=== PATIENT | female | born 1975 | race American Indian/Alaskan Native ===

== ENCOUNTER 2017-10-23 15:57 | Emergency (ER) | payer OTHER ==
[2017-10-23 16:16] VITALS: BP 159/72
[2017-10-23] MEDS ORDERED: NACL 0.9% 1000 ML 1,000 ML IV ONE (17:24)
--- NOTE | 2017-10-23 17:27 | Emergency Department Report ---
Blank Doc - Documentation Documentation: Patient is a 42-year-old [place] female past medical history of hyperglycemia and diabetes who is presenting with elevated blood sugar from home. Patient states that her blood sugars been running in the 4 500 range. Patient's had no nausea vomiting but has felt some gassy pains in the right upper quadrant and back. Patient and states that before arrival she took a double dose of her metformin and glipizide. Patient's blood sugar was 82 here in emergent department. Patient removed the treatment room. Mom may concern is that the patient took a double dose of her glipizide. At like to watch the patient for the next 2 hours to rule out hypoglycemic episodes. Also patient because her sugars been running high for the past several days most likely has some dehydration. IV fluids will be given. Patient be reassessed.
--- NOTE | 2017-10-23 18:58 | Emergency Department Report ---
- General Chief complaint: Hyperglycemia Stated complaint: HIGH BLOOD SUGAR/CHEST CRAMPS Time Seen by Provider: 10/23/17 17:18 Source: patient Mode of arrival: Ambulatory Limitations: No Limitations - History of Present Illness Initial comments: Patient is a 42-year-old Syrian female past medical history of hyperglycemia and diabetes who is presenting with elevated blood sugar from home. Patient states that her blood sugars been running in the 4 500 range. Patient's had no nausea vomiting but has felt some gassy pains in the right upper quadrant and back. Patient and states that before arrival she took a double dose of her metformin and glipizide. Patient's blood sugar was 82 here in emergent department. - Related Data Allergies Allergy/AdvReac Type Severity Reaction Status Date / Time No Known Allergies Allergy Unverified 10/23/17 16:14 ED Review of Systems ROS: Stated complaint: HIGH BLOOD SUGAR/CHEST CRAMPS Other details as noted in HPI Comment: All other systems reviewed and negative ED Past Medical Hx - Past Medical History Hx Diabetes: Yes - Surgical History Past Surgical History?: No - Social History Smoking Status: Current Every Day Smoker Substance Use Type: Alcohol ED Physical Exam - General Limitations: No Limitations General appearance: alert, in no apparent distress - Head Head exam: Present: atraumatic, normocephalic - Eye Eye exam: Present: normal appearance - ENT ENT exam: Present: mucous membranes moist - Neck Neck exam: Present: normal inspection - Respiratory Respiratory exam: Present: normal lung sounds bilaterally. Absent: respiratory distress, wheezes, rales, rhonchi - Cardiovascular Cardiovascular Exam: Present: regular rate, normal rhythm. Absent: systolic murmur, diastolic murmur, rubs, gallop - GI/Abdominal GI/Abdominal exam: Present: soft, normal bowel sounds. Absent: distended, tenderness, guarding, rebound - Extremities Exam Extremities exam: Present: normal inspection - Back Exam Back exam: Present: normal inspection - Neurological Exam Neurological exam: Present: alert, oriented X3 - Psychiatric Psychiatric exam: Present: normal affect, normal mood - Skin Skin exam: Present: warm, dry, intact, normal color. Absent: rash ED Course Vital Signs 10/23/17 16:14 Temperature 98 F Pulse Rate 99 H Respiratory 16 Rate Blood Pressure 159/72 O2 Sat by Pulse 99 Oximetry ED Medical Decision Making - EKG Data -: EKG Interpreted by Me EKG shows normal: sinus rhythm, axis, intervals, QRS complexes, ST-T waves Rate: normal - Medical Decision Making Patient's blood sugar was checked several times and within normal limits. Did hydrate the patient because of her recent hyperglycemia for several days. Patient is feeling within normal limits with discharge home. Critical care attestation.: If time is entered above; I have spent that time in minutes in the direct care of this critically ill patient, excluding procedure time. ED Disposition Clinical Impression: Hyperglycemia Disposition: DC-01 TO HOME OR SELFCARE Is pt being admited?: No Does the pt Need Aspirin: No Condition: Stable Referrals: PRIMARY CARE, [Primary Care Provider] - 3-5 Days Time of Disposition: 18:59
== END 2017-10-23 19:11 | disposition home or self-care (01) ==
LOC: ED 15:57
DX: E11.65 Type 2 diabetes mellitus with hyperglycemia (principal); F17.200 Nicotine dependence, unspecified, uncomplicated
CPT/HCPCS: 82962; 93005; 93010; 96360; 99283; J7030